=== PATIENT | male | born 1955 | race African-American/Black ===

== ENCOUNTER 2018-02-18 15:34 | Inpatient (IN) | payer BC, OTHER ==
[2018-02-18 16:43] LABS: POC GLUCOSE 134 mg/dL (70-99)
[2018-02-18 16:54] LABS: ADD MAN DIFF? NO
[2018-02-18 16:56] LABS: BASO # 0.1 x10^3/uL (0.0-0.2); BASO % 1 % (0-3); EOS # 0.3 x10^3/uL (0.0-0.7); EOS % 5 % (0-3); HEMATOCRIT 39.7 % (39.0-53.0); HEMOGLOBIN 13.9 g/dL (13.0-17.5); LYMPH # 2.1 x10^3/uL (1.0-4.8); LYMPH % 27 % (24-48); MEAN CORPUSCULAR HEMOGLOBIN 29 pg (25-35); MEAN CORPUSCULAR HGB CONC 35 g/dL (31-37); MEAN CORPUSCULAR VOLUME 84 fL (79-100); MONO # 0.5 x10^3/uL (0.0-1.1); MONO % 7 % (0-9); NEUT # 4.7 x10^3uL (1.8-7.7); NEUT % 60 % (31-73); PLATELET COUNT 238 x10^3/uL (140-400); RED BLOOD COUNT 4.74 x10^6/uL (4.30-5.70); WHITE BLOOD COUNT 7.7 x10^3/uL (4.0-11.0)
[2018-02-18 17:07] LABS: PARTIAL THROMBOPLASTIN TIME 25 SEC (24-38); PROTHROMBIN TIME PATIENT 12.3 SEC (11.7-14.0)
[2018-02-18 17:20] LABS: ANION GAP 9 (6-14); BLOOD UREA NITROGEN 23 mg/dL (8-26); BUN/CREATININE RATIO 19 (6-20); CALCIUM 8.9 mg/dL (8.5-10.1); CARBON DIOXIDE 26 mmol/L (21-32); CHLORIDE 106 mmol/L (98-107); CREATININE 1.2 mg/dL (0.7-1.3); GFR 74.2; GLUCOSE 148 mg/dL (70-99); POTASSIUM 3.3 mmol/L (3.5-5.1); SODIUM 141 mmol/L (136-145)
[2018-02-18 17:26] LABS: ALBUMIN 3.4 g/dL (3.4-5.0); ALBUMIN/GLOBULIN RATIO 0.9 (1.0-1.7); ALK PHOS 79 U/L (46-116); ALT (SGPT) 14 U/L (16-63); AST (SGOT) 15 U/L (15-37); TOTAL BILIRUBIN 0.6 mg/dL (0.2-1.0); TOTAL PROTEIN 7.4 g/dL (6.4-8.2)
[2018-02-18 17:28] LABS: TROPONINI 0.024 ng/mL (0.000-0.055)
[2018-02-18 17:32] LABS: NT-PRO BNP 706 pg/mL (0-124)
[2018-02-18] MEDS ORDERED: ACETAMINOPHEN 325 MG TABLET. PO (18:00)
[2018-02-18] MEDS ORDERED: MAG HYDROX/ALUMINUM HYD/SIMETH 30 ML ORAL.SUSP PO (18:00)
[2018-02-18] MEDS ORDERED: oxyCODONE IR 5 MG TABLET PO (18:00)
[2018-02-18] MEDS ORDERED: PROCHLORPERAZINE 25 MG SUPP.RECT. PR (18:00)
[2018-02-18] MEDS ORDERED: MAGNESIUM HYDROXIDE 2,400 MG/30 ML ORAL.SUSP. PO (18:00)
[2018-02-18] MEDS ORDERED: ONDANSETRON PF 4 MG/2 ML VIAL. IV (18:00)
[2018-02-18] MEDS ORDERED: ZOLPIDEM 5 MG TABLET. PO (18:00)
[2018-02-18] MEDS ORDERED: IBUPROFEN 400 MG TABLET. PO (18:00)
[2018-02-18] MEDS ORDERED: MORPHINE SULFATE 2 MG/ML DISP.SYRIN. IV (18:00)
[2018-02-18] MEDS ORDERED: PROCHLORPERAZINE 10 MG/2 ML VIAL. IV (18:00)
[2018-02-18] MEDS: ASPIRIN CHEWABLE 81 MG TABLET. PO (18:32)
[2018-02-18] MEDS: POTASSIUM CHLORIDE 20 MEQ TABLET.ER. PO (18:33)
[2018-02-18 20:46] LABS: POC GLUCOSE 152 mg/dL (70-99)
[2018-02-18] MEDS: DOCUSATE SODIUM 100 MG CAPSULE. PO (21:00)
[2018-02-18] MEDS ORDERED: DEXTROSE 50% 25 GM / 50ML DISP.SYRIN. IV ×2 (21:45)
[2018-02-18] MEDS: cloNIDine HCL 0.2 MG TABLET PO (21:51)
[2018-02-18 22:05] LABS: TROPONINI 0.042 ng/mL (0.000-0.055)
[2018-02-19 05:30] LABS: ANION GAP 10 (6-14); BLOOD UREA NITROGEN 19 mg/dL (8-26); CARBON DIOXIDE 29 mmol/L (21-32); CHLORIDE 104 mmol/L (98-107); CREATININE 1.1 mg/dL (0.7-1.3); GFR 82.1; GLUCOSE 153 mg/dL (70-99); POTASSIUM 3.5 mmol/L (3.5-5.1); SODIUM 143 mmol/L (136-145)
[2018-02-19 06:09] LABS: CHOLESTEROL 202 mg/dL (0-200); HDLC 40 mg/dL (40-60); LDLC 133 mg/dL (0-100); NON-HDL CHOLESTEROL 162 mg/dL (0-129); TRIGLYCERIDES 146 mg/dL (0-150); VLDLC 29 mg/dL (0-40)
[2018-02-19 06:11] LABS: CHOLESTEROL/HDL RATIO 5.1
[2018-02-19 07:54] LABS: POC GLUCOSE 141 mg/dL (70-99)
[2018-02-19] MEDS ORDERED: INSULIN LISPRO 300 UNITS/3 ML INSULN.PEN. SQ (08:00)
[2018-02-19] MEDS: INSULIN LISPRO 300 UNITS/3 ML INSULN.PEN. SQ ×3 (08:00→17:00)
[2018-02-19] MEDS: METOPROLOL TART IMMED RELEASE 50 MG TABLET. PO ×2 (08:29→21:00)
[2018-02-19] MEDS: MULTIVITAMIN with MINERAL TABLET. PO (08:29)
[2018-02-19] MEDS: CHOLECALCIFEROL (VITAMIN D3) 1,000 UNIT TABLET PO (08:30)
[2018-02-19] MEDS: GLIMEPIRIDE 2 MG TABLET. PO ×2 (08:30→17:20)
[2018-02-19] MEDS: cloNIDine HCL 0.2 MG TABLET PO ×2 (08:30→20:57)
[2018-02-19] MEDS: LOSARTAN POTASSIUM 50 MG TABLET. PO (08:30)
[2018-02-19] MEDS: DOCUSATE SODIUM 100 MG CAPSULE. PO ×2 (08:31→20:57)
[2018-02-19 12:17] LABS: POC GLUCOSE 174 mg/dL (70-99)
[2018-02-19] MEDS: ASPIRIN ENTERIC COATED 325 MG TABLET.DR. PO (12:43)
[2018-02-19] MEDS: ASPIRIN ENTERIC COATED 81 MG TABLET.DR. PO (12:44)
[2018-02-19 17:15] LABS: POC GLUCOSE 141 mg/dL (70-99)
[2018-02-19] MEDS: hydrALAZINE 20 MG/ML VIAL. IVP (20:56)
[2018-02-19 21:03] LABS: POC GLUCOSE 124 mg/dL (70-99)
[2018-02-20 07:24] LABS: POC GLUCOSE 116 mg/dL (70-99)
[2018-02-20] MEDS: LOSARTAN POTASSIUM 50 MG TABLET. PO (07:28)
[2018-02-20] MEDS: cloNIDine HCL 0.2 MG TABLET PO ×2 (07:28→20:39)
[2018-02-20] MEDS: DOCUSATE SODIUM 100 MG CAPSULE. PO ×2 (07:41→20:39)
[2018-02-20] MEDS: INSULIN LISPRO 300 UNITS/3 ML INSULN.PEN. SQ ×3 (07:41→17:00)
[2018-02-20] MEDS: hydrALAZINE 20 MG/ML VIAL. IVP ×2 (08:40→15:38)
[2018-02-20] MEDS: GLIMEPIRIDE 2 MG TABLET. PO ×2 (08:40→17:00)
[2018-02-20] MEDS: MULTIVITAMIN with MINERAL TABLET. PO (08:40)
[2018-02-20] MEDS: CHOLECALCIFEROL (VITAMIN D3) 1,000 UNIT TABLET PO (08:40)
[2018-02-20] MEDS: METOPROLOL TART IMMED RELEASE 50 MG TABLET. PO (08:41)
[2018-02-20] MEDS: ASPIRIN ENTERIC COATED 81 MG TABLET.DR. PO (08:41)
[2018-02-20 11:30] LABS: POC GLUCOSE 171 mg/dL (70-99)
[2018-02-20] MEDS: LABETALOL HCL 200 MG TABLET PO ×2 (12:10→20:39)
[2018-02-20] MEDS ORDERED: PERFLUTREN PROTEIN-A MICROSPHR 0.22 MG/ML 3 ML VIAL. IV (13:00)
[2018-02-20 17:18] LABS: POC GLUCOSE 105 mg/dL (70-99)
[2018-02-20 20:34] LABS: POC GLUCOSE 90 mg/dL (70-99)
[2018-02-21] MEDS: MULTIVITAMIN with MINERAL TABLET. PO (07:48)
[2018-02-21] MEDS: hydrALAZINE 20 MG/ML VIAL. IVP ×2 (07:49→19:42)
[2018-02-21] MEDS: LABETALOL HCL 200 MG TABLET PO ×2 (07:49→20:20)
[2018-02-21] MEDS: LOSARTAN POTASSIUM 50 MG TABLET. PO (07:50)
[2018-02-21] MEDS: CHOLECALCIFEROL (VITAMIN D3) 1,000 UNIT TABLET PO (07:50)
[2018-02-21] MEDS: ASPIRIN ENTERIC COATED 81 MG TABLET.DR. PO (07:50)
[2018-02-21] MEDS: INSULIN LISPRO 300 UNITS/3 ML INSULN.PEN. SQ ×3 (07:51→17:00)
[2018-02-21] MEDS: DOCUSATE SODIUM 100 MG CAPSULE. PO ×2 (07:51→20:20)
[2018-02-21] MEDS: cloNIDine HCL 0.2 MG TABLET PO ×2 (07:51→20:19)
[2018-02-21 08:04] LABS: POC GLUCOSE 137 mg/dL (70-99)
[2018-02-21 11:21] LABS: POC GLUCOSE 196 mg/dL (70-99)
[2018-02-21] MEDS: GLIMEPIRIDE 2 MG TABLET. PO ×2 (11:59→15:28)
[2018-02-21 17:02] LABS: POC GLUCOSE 148 mg/dL (70-99)
[2018-02-21 20:28] LABS: POC GLUCOSE 138 mg/dL (70-99)
[2018-02-21] MEDS: LABETALOL 20 MG/4 ML DISP.SYRIN. IVP (21:28)
[2018-02-22 07:28] LABS: POC GLUCOSE 135 mg/dL (70-99)
[2018-02-22] MEDS: ASPIRIN ENTERIC COATED 81 MG TABLET.DR. PO (07:39)
[2018-02-22] MEDS: GLIMEPIRIDE 2 MG TABLET. PO ×2 (07:39→17:06)
[2018-02-22] MEDS: MULTIVITAMIN with MINERAL TABLET. PO (07:39)
[2018-02-22] MEDS: LOSARTAN POTASSIUM 50 MG TABLET. PO (07:39)
[2018-02-22] MEDS: LABETALOL HCL 200 MG TABLET PO ×2 (07:39→20:48)
[2018-02-22] MEDS: CHOLECALCIFEROL (VITAMIN D3) 1,000 UNIT TABLET PO (07:40)
[2018-02-22] MEDS: INSULIN LISPRO 300 UNITS/3 ML INSULN.PEN. SQ ×3 (07:40→17:10)
[2018-02-22] MEDS: cloNIDine HCL 0.2 MG TABLET PO (07:40)
[2018-02-22] MEDS: DOCUSATE SODIUM 100 MG CAPSULE. PO ×2 (07:40→20:48)
[2018-02-22 09:01] LABS: ADD MAN DIFF? NO
[2018-02-22 09:08] LABS: BASO % 1 % (0-3); EOS # 0.4 x10^3/uL (0.0-0.7); EOS % 5 % (0-3); HEMATOCRIT 35.9 % (39.0-53.0); HEMOGLOBIN 12.4 g/dL (13.0-17.5); LYMPH # 1.9 x10^3/uL (1.0-4.8); LYMPH % 29 % (24-48); MEAN CORPUSCULAR HEMOGLOBIN 29 pg (25-35); MEAN CORPUSCULAR HGB CONC 35 g/dL (31-37); MEAN CORPUSCULAR VOLUME 84 fL (79-100); MONO # 0.4 x10^3/uL (0.0-1.1); MONO % 6 % (0-9); NEUT # 3.9 x10^3uL (1.8-7.7); NEUT % 59 % (31-73); PLATELET COUNT 203 x10^3/uL (140-400); RED BLOOD COUNT 4.26 x10^6/uL (4.30-5.70); RED CELL DISTRIBUTION WIDTH 13.9 % (11.5-14.5); WHITE BLOOD COUNT 6.6 x10^3/uL (4.0-11.0)
[2018-02-22 09:28] LABS: ANION GAP 8 (6-14); BLOOD UREA NITROGEN 20 mg/dL (8-26); CALCIUM 8.3 mg/dL (8.5-10.1); CARBON DIOXIDE 28 mmol/L (21-32); CHLORIDE 105 mmol/L (98-107); CREATININE 1.1 mg/dL (0.7-1.3); GFR 82.1; GLUCOSE 133 mg/dL (70-99); POTASSIUM 3.5 mmol/L (3.5-5.1); SODIUM 141 mmol/L (136-145)
[2018-02-22 10:39] LABS: VITAMIN-B12 566 pg/mL (247-911)
[2018-02-22] MEDS: amLODIPine BESYLATE 10 MG TABLET PO (10:58)
[2018-02-22] MEDS: cloNIDine HCL 0.3 MG TABLET PO ×2 (10:59→20:47)
[2018-02-22 11:04] LABS: POC GLUCOSE 167 mg/dL (70-99)
[2018-02-22] MEDS: hydrALAZINE 20 MG/ML VIAL. IVP ×2 (12:31→23:15)
[2018-02-22 16:57] LABS: POC GLUCOSE 162 mg/dL (70-99)
[2018-02-22] MEDS: ATORVASTATIN CALCIUM 40 MG TABLET. PO (20:48)
[2018-02-22 22:00] LABS: POC GLUCOSE 190 mg/dL (70-99)
[2018-02-23 07:45] LABS: POC GLUCOSE 154 mg/dL (70-99)
[2018-02-23] MEDS: INSULIN LISPRO 300 UNITS/3 ML INSULN.PEN. SQ ×2 (08:00→12:00)
[2018-02-23] MEDS: MULTIVITAMIN with MINERAL TABLET. PO (08:53)
[2018-02-23] MEDS: CHOLECALCIFEROL (VITAMIN D3) 1,000 UNIT TABLET PO (08:53)
[2018-02-23] MEDS: ASPIRIN ENTERIC COATED 81 MG TABLET.DR. PO (08:53)
[2018-02-23] MEDS: GLIMEPIRIDE 2 MG TABLET. PO (08:53)
[2018-02-23] MEDS: amLODIPine BESYLATE 10 MG TABLET PO (08:54)
[2018-02-23] MEDS: LOSARTAN POTASSIUM 50 MG TABLET. PO (08:54)
[2018-02-23] MEDS: cloNIDine HCL 0.3 MG TABLET PO (08:57)
[2018-02-23] MEDS: DOCUSATE SODIUM 100 MG CAPSULE. PO (08:57)
[2018-02-23 10:09] LABS: ANION GAP 5 (6-14); BLOOD UREA NITROGEN 20 mg/dL (8-26); CALCIUM 8.7 mg/dL (8.5-10.1); CARBON DIOXIDE 30 mmol/L (21-32); CHLORIDE 104 mmol/L (98-107); CREATININE 1.1 mg/dL (0.7-1.3); GFR 82.1; GLUCOSE 187 mg/dL (70-99); POTASSIUM 3.7 mmol/L (3.5-5.1); SODIUM 139 mmol/L (136-145)
[2018-02-23 10:26] LABS: THYROID STIM HORMONE (TSH) 3.949 uIU/mL (0.358-3.74)
[2018-02-23 12:33] LABS: BILIRUBIN,URINE NEGATIVE (NEG); CLARITY,URINE CLEAR; COLOR,URINE YELLOW; GLUCOSE,URINE >=1000 mg/dL (NEG); NITRITE,URINE NEGATIVE (NEG); PH,URINE 5.5; PROTEIN,URINE 100 mg/dL (NEG-TRACE); UROBILINOGEN,URINE 0.2 mg/dL (0.2 mg/dL)
[2018-02-23 12:45] LABS: BACTERIA,URINE 0 /HPF (0-FEW); RBC,URINE 0 /HPF (0-2); SQUAMOUS EPITHELIAL CELL,UR MOD /LPF
[2018-02-23 12:46] LABS: FREE T4 1.02 ng/dL (0.76-1.46)
[2018-02-23] MEDS: LABETALOL HCL 200 MG TABLET PO (13:29)
[2018-02-23] MEDS: hydrALAZINE 25 MG TABLET PO (14:28)
[2018-02-23 14:48] LABS: POC GLUCOSE 226 mg/dL (70-99)
== END 2018-02-23 18:08 | disposition home or self-care (01) | DRG 78 ==
LOC: ER 15:34 → 2 NORTH 17:49
PROVIDERS: Internal Medicine
DX: I67.4 Hypertensive encephalopathy (principal); I16.1 Hypertensive emergency; R47.01 Aphasia; I10 Essential (primary) hypertension; E78.5 Hyperlipidemia, unspecified; E11.65 Type 2 diabetes mellitus with hyperglycemia; Z79.84 Long term (current) use of oral hypoglycemic drugs; Z82.49 Family history of ischemic heart disease and other diseases of the circulatory system; Z83.3 Family history of diabetes mellitus; Z80.6 Family history of leukemia
CPT/HCPCS: 36415; 70450; 70551; 76770; 80048; 80053; 80061; 81001; 82607; 82962; 83880; 84439; 84443; 84481; 84484; 85025; 85610; 85730; 93005; 93880; 97161-GP; 97166-GO; 99285; 99285-25; C8929; J0360; J1815; J3490; J7050

== ENCOUNTER → 2018-04-01 | Outpatient (CLI) | payer BC ==
[2018-02-23 15:00] VITALS: BP 164/74
[~2018-04-01] MED LIST: AMLO10TA6 PO; ASPI-612 PO; ATOR40TA59 PO; BYSTOLIC10 MG PO; CHOL100013 PO; CLON0.2T PO; CLON0.3T4 PO; GLIM4TAB PO; LABE200T4 PO; LOSA50TA2 PO; METF10007 PO; MULT-240 PO; TELM80TA PO
[2018-04-01] MEDS: REGADENOSON 0.4 MG/5 ML DISP.SYRIN. IV ONE (09:48)
--- NOTE | 2018-04-01 11:54 | RAD ---
MR#: [id number] Date of Study: 04/01/2018 Ordering Physician: MADDI MACIAS Referring Physician: JESÚS CHATTERJEE Tech: RT Sue (R) (N) APPROVED REPORT Test Type: Pharmacological Stress Nurse/Tech: Deng GAMBLE Test Indications: Fatigue, Dyspnea with exertion Cardiac History: HTN, DM, X-smoker Medications: See EMR Medical History: See EMR Resting ECG: SB Resting Heart Rate: 56 bpm Resting Blood Pressure: 154/80mmHg Pretest Chest Pain: No chest pain Nurse/Tech Notes Lungs CTA, Heart tones regular Consent: The procedure was explained to the patient in lay terms. Informed consent was witnessed. Khurram eout was entered into [facility]. History and Stress Test performed by [facility] [employer]. Details Pharmacologic stress testing was performed using 0.4mg per 5ml of regadenoson given intravenously ove r 7-10 seconds. Stress Symptoms Nausea, lightheaded POST EXERCISE Reason for Termination: Infusion complete Max HR: 84 bpm Max Blood Pressure: 146/67mmHg Chest Pain: No. Arrhythmia: Yes. Frequent PVCs ST Change: No. INTERPRETATION Stress EKG Conclusion: No evidence of stress induced EKG changes. Imaging Protocol IMAGE PROTOCOL: Rest Tc-99m/stress Tc-99m 1 day Rest: Stress: Viability: Radiopharm.Tc99m [id number] Sestamibi Dose11.4mCi 33.6mCi Duration 13min. 13min. Img Date 04/01/2018 04/01/2018 Inj-Img [id number]. 60min. Rest Admin Site:IV - Left AntecubitalAdministrator:TRACY Mauro Stress Admin Site: IV - Left AntecubitalAdministrator: TRACY Mauro STRESS DATA End Diast. Vol.147.0mlLVEDV index BSA73.0ml End Syst. Vol.88.0mlLVESV index BSA43.0ml Myocardial Jwyo380.0gEject. Bzuydowc47.0% Stress Scores Regional WT2.00Summed WT26.00 Regional WM1.00Summed WM26.00 LV Perfusion There is a small to moderate sized fixed basal inferior wall defect suggestive of prior infarct versu s attenuation artifact. Wall Motion Mild LV dysfunction. Global hypokinesis with an EF of 40%. LV Perf. Quant 17 Seg. SSS3.00 17 Seg. SRS4.00 17 Seg. SDS0.00 Stress Defect Extent (% LAD)0.00Rest Defect Extent (% LAD)0.00Rev. Defect Extent (% LAD)0.00 Stress Defect Extent (% LCX) 28.80Rest Defect Extent (% LCX)38.80Rev. Defect Extent (% LCX)0.00 Stress Defect Extent (% RCA)0.00Rest Defect Extent (% RCA)0.00Rev. Defect Extent (% RCA)0.00 Stress Defect Extent (% LENCHO)5.00Rest Defect Extent (% LENCHO)6.70Rev. Defect Extent (% LENCHO)0.00 Other Information Quality:Average Risk Assessment: Moderate Risk Conclusion 1. No evidence of stress induced EKG changes. Occ PVC's noted. 2. Mild FIXEd basal inferior wall defect suggestive of prior infarct versus subdiaphragmatic attenuat ion artifact. 3. Moderate LV dysfunction. EF 40%. 4. Moderate to high risk study for future CV events based on low EF. Signed by : Stone Graham, Electronically Approved : 04/01/2018 11:53:36
== END | disposition home or self-care (01) ==
LOC: NM 08:01
PROVIDERS: ATTEND Internal Medicine Cardiovascular Disease
DX: I11.9 Hypertensive heart disease without heart failure (principal); E11.9 Type 2 diabetes mellitus without complications; E78.5 Hyperlipidemia, unspecified; Z79.84 Long term (current) use of oral hypoglycemic drugs; Z82.49 Family history of ischemic heart disease and other diseases of the circulatory system; Z80.6 Family history of leukemia; Z83.3 Family history of diabetes mellitus
CPT/HCPCS: 78452; 93017; 96374; 96375; 96376; A9500; J2785

== ENCOUNTER 2018-04-15 08:03 | Outpatient (CLI) | payer BC ==
[~2018-04-15] VITALS: Ht 180.3 cm; Wt 83.5 kg
[2018-04-15] VITALS (8 sets, daily range): BP systolic 156–176; BP diastolic 63–96
[2018-04-15] MEDS ORDERED: TRAZ-85 PO (08:31)
[2018-04-15] MEDS ORDERED: SPIR50TA4 PO (08:31)
[2018-04-15 08:35] LABS: HEMATOCRIT 34.5 % (39.0-53.0); HEMOGLOBIN 12.3 g/dL (13.0-17.5); RED BLOOD COUNT 4.06 x10^6/uL (4.30-5.70); RED CELL DISTRIBUTION WIDTH 12.9 % (11.5-14.5); WHITE BLOOD COUNT 6.2 x10^3/uL (4.0-11.0)
[2018-04-15] MEDS ORDERED: ASPI-612 PO (08:39)
[2018-04-15] MEDS ORDERED: GLIM4TAB2 PO (08:39)
[2018-04-15 08:45] LABS: PROTHROMBIN TIME PATIENT 13.5 SEC (11.7-14.0)
[2018-04-15 08:52] LABS: CALCIUM 9.1 mg/dL (8.5-10.1); CREATININE 1.6 mg/dL (0.7-1.3); GFR 53.3; POTASSIUM 4.1 mmol/L (3.5-5.1)
[2018-04-15] MEDS ORDERED: IODIXANOL 320 MG/ML 100 ML VIAL. ONE ×2 (10:03→10:54)
[2018-04-15] MEDS ORDERED: LIDOCAINE 1% PF 2 ML VIAL. ONE (10:03)
[2018-04-15] MEDS ORDERED: HEPARIN for IV BOLUS 10,000 UNIT/10 ML VIAL. ONE (10:13)
[2018-04-15] MEDS ORDERED: MIDAZOLAM HCL/PF 2 MG/2 ML VIAL. ONE (10:13)
[2018-04-15] MEDS ORDERED: fentaNYL PF VIAL 100 MCG/2 ML VIAL ONE (10:13)
[2018-04-15] MEDS ORDERED: NITROGLYCERIN 200 MCG/2 ML SYRINGE FOR CATH/VASC LAB. ONE (10:13)
[2018-04-15] MEDS ORDERED: VERAPAMIL 5 MG/2 ML VIAL. ONE (10:13)
[2018-04-15] MEDS ORDERED: IODIXANOL 320 MG/ML 100 ML VIAL. IART ONE (10:30)
[2018-04-15] MEDS ORDERED: LIDOCAINE 1% PF 2 ML VIAL. INJ ONE (10:30)
[2018-04-15] MEDS ORDERED: fentaNYL PF VIAL 100 MCG/2 ML VIAL IV ONE (10:30)
[2018-04-15] MEDS ORDERED: MIDAZOLAM HCL/PF 2 MG/2 ML VIAL. IV ONE (10:30)
--- NOTE | 2018-04-15 10:33 | PDOC ---
MODERATE SEDATION ASSESSMENT RISKS/ALTERNATIVES Risks/Alternatives Risks and alternatives of this type of sedation and procedure discussed with: RISK/ALTERNATIVES: Patient H & P ON CHART H & P H & P on chart and reviewed for co-morbid conditions and appropriate labs. H&P ON CHART: Yes STATUS PREG STATUS ASSESSED: N/A MEDS/ALLERGIES REVIEWED Meds/Allergies Reviewed Medications and Allergies including time and route of recently administered narcotics and sedatives. MEDS/ALLERGIES REVIEWED: Yes ASA RATING ASA RATING: II AIRWAY ASSESSMENT Airway Assessment Airway patency, oral function limitations, presence of caps, crowns, dentures, partials, and ability to extend neck assessed. AIRWAY ASSESSMENT: Yes MALLAMPATI SCORE MALLAMPATI SCORE: II PRE-SEDATION ASSESSMENT PRE-SEDATION ASSESSMENT: Yes MADDI MACIAS MD Apr 15, 2018 10:33
[2018-04-15] MEDS ORDERED: VERAPAMIL 5 MG/2 ML VIAL. IART ONE (10:45)
[2018-04-15] MEDS ORDERED: NITROGLYCERIN 200 MCG/2 ML SYRINGE FOR CATH/VASC LAB. IART ONE (10:45)
[2018-04-15] MEDS ORDERED: HEPARIN for IV BOLUS 10,000 UNIT/10 ML VIAL. IART ONE (10:45)
--- NOTE | 2018-04-15 11:31 | CARD ---
MR#: [id number] Date of Study: 04/15/2018 Ordering Physician: MADDI TOURE Referring Physician: MADDI TOURE Tech: RT Karen (R) APPROVED REPORT Technologist: RT Karen (R) Nurse: Barb Cooper RN Procedure(s) performed: Left heart catheterization, selective coronary angiography and left ventricul ography via right transradial approach Moderate sedation : 30 min INDICATION The indication(s) include : unstable angina . PROCEDURE NARRATIVE After explaining the risks, benefits and alternative options, informed consent was obtained from batsheva ent. Patient was brought to the cardiac [employer] and right wrist was prepped and draped in the usual fashion after confirming a positive modified Edson's test. Arterial access was obtained in the righ t radial artery and a 6 Slovak sheath was inserted. 6 Slovak Avery catheter was used to perform ronnie ective angiography of the left and right coronary arteries. 6 Slovak pigtail catheter was used to pe rform left ventriculography. Patient tolerated the procedure well. Hemostasis was achieved using TR band. There were no immediate complications. The following findings were noted. FINDINGS 1. Hemodynamics: Left ventricular end-diastolic pressure of 15 mmHg. No pullback gradient across th e aortic valve. 2. Left ventriculography: Mild left ventricle systolic dysfunction with ejection fraction estimated at 40%. No significant mitral regurgitation seen. 3. Coronary angiography: a. The left main coronary artery arose from the left sinus of Valsalva, was short, gave rise to the left anterior descending and left circumflex arteries and did not show any significant stenosis. b. The left anterior descending artery showed 40% stenosis in the mid to distal segment. c. The left circumflex artery did not show any significant stenosis. d. The right coronary artery was a large and dominant vessel arising from the right sinus of Valsalv a that did not show any significant stenosis. Conclusion 1. Nonobstructive coronary artery disease involving the left anterior descending artery 2. Mild left ventricle systolic dysfunction with ejection fraction estimated at 40% Recommendations Medical Therapy Signed by : Maddi Toure, Electronically Approved : 04/15/2018 11:29:33
[2018-04-15] MEDS ORDERED: IV 1/2 NORMAL SALINE 1,000 ML IV SCH (11:47)
[2018-04-15] MEDS ORDERED: NITROGLYCERIN SUBLINGUAL 0.4 MG BOTTLE OF 25. SL PRN (12:00)
== END 2018-04-15 14:05 | disposition home or self-care (01) ==
LOC: CCL 08:03
PROVIDERS: ATTEND Internal Medicine Cardiovascular Disease
DX: I25.110 Atherosclerotic heart disease of native coronary artery with unstable angina pectoris (principal)
CPT/HCPCS: 36415; 80048; 85027; 85610; 93458; 99152; 99153; C1769; C1892; J1644; J2250; J3010; J3490; Q9967